=== PATIENT | male | born 1965 | race Caucasian/White ===

== ENCOUNTER 2019-07-21 06:21 | Inpatient (IN) | payer MEDICARE ==
[2019-07-21 08:45] LABS: ABSOLUTE BASOPHILS # (AUTO) 0.1 10^3/uL (0.0-0.2); ABSOLUTE EOSINOPHILS # (AUTO) 0.9 10^3/uL (0.0-0.6); ABSOLUTE MONOCYTES (AUTO) 1.4 10^3/uL (0.1-1.4); ABSOLUTE NEUT (AUTO) 7.4 10^3/uL (1.7-8.2); BASOPHILS % (AUTO) 0.6 % (0-2); HEMATOCRIT 39.2 % (37.9-51.0); HEMOGLOBIN 13.2 g/dL (13.5-17.0); LYMPHOCYTES % (AUTO) 9.3 % (13-45); MEAN CORPUSCULAR HEMOGLOBIN 25.4 pg (27.0-33.4); MEAN CORPUSCULAR HGB CONC 33.8 g/dL (32.0-36.0); MEAN CORPUSCULAR VOLUME 75 fl (80-97); MONOCYTES % (AUTO) 12.8 % (3-13); PLATELET COUNT 252 10^3/uL (150-450); RED BLOOD COUNT 5.22 10^6/uL (4.35-5.55); RED CELL DISTRIBUTION WIDTH 15.6 % (11.5-14.0); SEGMENTED NEUTROPHILS % (AUTO) 69.3 % (42-78); TOTAL CELLS COUNTED % (AUTO) 100 %; WHITE BLOOD COUNT 10.7 10^3/uL (4.0-10.5)
[2019-07-21 08:46] LABS: VENOUS BLOOD BASE EXCESS -1.4 mmol/L; VENOUS BLOOD HCO3 25.6 mmol/L (20-32); VENOUS BLOOD PCO2 52.2 mmHg (35-63); VENOUS BLOOD PH 7.31 (7.30-7.42)
[2019-07-21 08:54] LABS: INTERNATIONAL RATION (INR) 0.94; PROTHROMBIN TIME 12.6 SEC (11.4-15.4)
[2019-07-21 09:05] LABS: ALBUMIN 3.9 g/dL (3.5-5.0); ALKALINE PHOSPHATASE 126 U/L (38-126); ANION GAP 6 (5-19); ASPARTATE AMINO TRANSFERASE 52 U/L (17-59); BILIRUBIN,TOTAL 0.5 mg/dL (0.2-1.3); BLOOD UREA NITROGEN 18 mg/dL (7-20); CALCIUM 8.6 mg/dL (8.4-10.2); CARBON DIOXIDE 26 mmol/L (22-30); CHLORIDE 103 mmol/L (98-107); GLUCOSE 109 mg/dL (75-110); POTASSIUM 4.4 mmol/L (3.6-5.0); TOTAL PROTEIN 6.6 g/dL (6.3-8.2)
[2019-07-21] MEDS ORDERED: MORPHINE SULFATE 10 MG/ML INJ IV ONE ×2 (09:21→12:14)
--- NOTE | 2019-07-21 09:23 | ER Document Report ---
ED Skin Rash/Insect Bite/Abscs - General Chief Complaint: Facial Swelling Stated Complaint: FACIAL EDEMA Time Seen by Provider: 07/21/19 08:59 Mode of Arrival: Ambulatory Information source: Patient Notes: Patient presents complaint of facial swelling for the past 2 days. Patient states that he had a bump inside his nostril and that the area surrounding it seemed to get infected. Patient reports a fever 2 days ago. 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 Patient states he was seen at an urgent care and started on Keflex and Bactrim 2 days ago. Patient denies any improvement despite taking the antibiotics. - HPI Patient complains to provider of: Tender/swollen area Onset: Other - 2 days ago Onset/Duration: Worse Quality of pain: Sharp Pain Level: 5 Skin Character: Erythema, Tenderness, Warm Skin Temperature: Warm Quality of rash: Painful Relieved by: Denies Similar symptoms previously: Yes Recently seen / treated by doctor: Yes - Related Data Allergies/Adverse Reactions: No Known Allergies Allergy (Unverified 07/21/19 10:28) Home Medications: Bactrim. Breo Past Medical History - General Information source: Patient - Social History Smoking Status: Current Every Day Smoker Chew tobacco use (# tins/day): No Frequency of alcohol use: None Drug Abuse: None Occupation: None Family History: Reviewed & Not Pertinent Patient has homicidal ideation: No Pulmonary Medical History: Reports: Hx COPD Musculoskeletal Medical History: Reports Hx Arthritis - Chronic back pain Skin Medical History: Reports Hx MRSA Past Surgical History: Reports: Hx Orthopedic Surgery - back, knee replacement Review of Systems - Review of Systems Constitutional: No symptoms reported. denies: Fever EENT: Other - Tenderness, swelling to the nose and facial area Cardiovascular: No symptoms reported Respiratory: No symptoms reported. denies: Cough, Short of breath Gastrointestinal: No symptoms reported. denies: Vomiting Genitourinary: No symptoms reported Male Genitourinary: No symptoms reported Musculoskeletal: No symptoms reported Skin: Other - Erythema to left facial area, crusted skin lesion inside nostril Hematologic/Lymphatic: No symptoms reported Neurological/Psychological: No symptoms reported Physical Exam - Vital signs Vitals: Temp 98.2 F 07/21/19 07:52 - General General appearance: Appears well, Alert In distress: None - HEENT Head: Normocephalic, Atraumatic Eyes: Normal Conjunctiva: Normal Nasal: Other - Crusted skin lesion inside the left nostril, small pustular lesion outside of left nostril Mucous membranes: Normal Pharynx: Normal Notes: Left maxillary facial tenderness with faint erythema - Respiratory Respiratory status: No respiratory distress Chest status: Nontender Breath sounds: Normal. No: Rales, Rhonchi, Stridor, Wheezing Chest palpation: Normal - Cardiovascular Rhythm: Regular Heart sounds: S1 appreciated, S2 appreciated - Back Back: Normal - Extremities General upper extremity: Normal inspection, Normal strength General lower extremity: Normal inspection, Normal strength - Neurological Neuro grossly intact: Yes Cognition: Normal Simon Coma Scale Eye Opening: Spontaneous Simon Coma Scale Verbal: Oriented [place] Coma Scale Motor: Obeys Commands Simon Coma Scale Total: 15 - Psychological Associated symptoms: Normal affect, Normal mood - Skin Skin Temperature: Warm Skin Moisture: Dry Skin Color: Erythema - Faint erythema to left maxillary facial area Skin irregularity: other - Pustular lesion just inferior of left nostril, crusted area inside left nostril Course - Re-evaluation Re-evalutation: 07/21/19 11:[address] Sequeira regarding patient presentation and diagnostic evaluation. Recommends consultation with ENT Dr. Chowdhury, patch press operator placed call for consult, awaiting return call. 07/21/19 12:[address] Chowdhury and reviewed patient's presentation and diagnostic evaluation with him. Discussed findings on CT scan. Dr. Mcleod feels that patient requires admission by the hospitalist at this time for IV antibiotics such as when isolated and continuing his Bactrim, although states that antibiotic choice can be guided by the hospitalist at this time. Dr Chowdhury states that if the hospitalist needs to reimage the patient at some point and patient does have findings that require his services, ENT can be consulted at that point. 07/21/19 12:[address] Card who does agree to admit patient to a medical floor at this time. Dr. Card requests that an order for consultation for Dr. Chowdhury be placed. - Vital Signs Vital signs: Temp Pulse Resp BP Pulse Ox 99.4 F 82 18 140/69 H 99 07/21/19 15:55 07/21/19 15:55 07/21/19 15:55 07/21/19 15:55 05/20/20 15:55 - Laboratory Result Diagrams: 07/21/19 08:30 07/21/19 08:30 Laboratory results interpreted by me: 07/21/19 07/21/19 08:30 08:30 WBC 10.7 H Hgb 13.2 L MCV 75 L MCH 25.4 L RDW 15.6 H Lymph % (Auto) 9.3 L Eos % (Auto) 8.0 H Absolute Eos (auto) 0.9 H Sodium 135.0 L 07/21/19 12:13 Labs- Entire Visit 07/21/19 07/21/19 07/21/19 08:30 08:30 08:30 WBC 10.7 H RBC 5.22 Hgb 13.2 L Hct 39.2 MCV 75 L MCH 25.4 L MCHC 33.8 RDW 15.6 H Plt Count 252 Lymph % (Auto) 9.3 L [place] % (Auto) 12.8 Eos % (Auto) 8.0 H Baso % (Auto) 0.6 Absolute Neuts (auto) 7.4 Absolute Lymphs (auto) 1.0 Absolute Monos (auto) 1.4 Absolute Eos (auto) 0.9 H Absolute Basos (auto) 0.1 Seg Neutrophils % 69.3 PT 12.6 INR 0.94 VBG pH VBG pCO2 VBG HCO3 VBG Base Excess Sodium 135.0 L Potassium 4.4 Chloride 103 Carbon Dioxide 26 Anion Gap 6 BUN 18 Creatinine 0.73 Est GFR ( Amer) > 60 Est GFR (MDRD) Non-Af > 60 Glucose 109 Lactic Acid Calcium 8.6 Total Bilirubin 0.5 Direct Bilirubin 0.0 Neonat Total Bilirubin Not Reportable Neonat Direct Bilirubin Not Reportable Neonat Indirect Bili Not Reportable AST 52 ALT 48 Alkaline Phosphatase 126 Total Protein 6.6 Albumin 3.9 07/21/19 07/21/19 08:30 08:30 WBC RBC Hgb Hct MCV MCH MCHC RDW Plt Count Lymph % (Auto) [place] % (Auto) Eos % (Auto) Baso % (Auto) Absolute Neuts (auto) Absolute Lymphs (auto) Absolute Monos (auto) Absolute Eos (auto) Absolute Basos (auto) Seg Neutrophils % PT INR VBG pH 7.31 VBG pCO2 52.2 VBG HCO3 25.6 VBG Base Excess -1.4 Sodium Potassium Chloride Carbon Dioxide Anion Gap BUN Creatinine Est GFR ( Amer) Est GFR (MDRD) Non-Af Glucose Lactic Acid 0.9 Calcium Total Bilirubin Direct Bilirubin Neonat Total Bilirubin Neonat Direct Bilirubin Neonat Indirect Bili AST ALT Alkaline Phosphatase Total Protein Albumin - Diagnostic Test Radiology reviewed: Reports reviewed Discharge - Discharge Clinical Impression: Facial cellulitis Condition: Stable Disposition: ADMITTED OBSERVATION Admitting Provider: Kyaw (Hospitalist) Unit Admitted: Medical Floor
[2019-07-21] MEDS ORDERED: ONDANSETRON HCL INJ/PF 4 MG/2 ML SDV IV ONE (09:39)
--- NOTE | 2019-07-21 10:37 | RADIOLOGY REPORT (SQ) ---
EXAM DESCRIPTION: CT FACIAL AREA WITH IMAGES COMPLETED DATE/TIME: 07/21/2019 10:15 am REASON FOR STUDY: facial infection, swelling COMPARISON: None. TECHNIQUE: Post contrast images through the facial bones and orbits windowed for bone and soft tissu e. Additional coronal and sagittal reconstructed images reviewed. All images stored on PACS. All CT scanners at this facility use dose modulation, iterative reconstruction, and/or weight based d osing when appropriate to reduce radiation dose to as low as reasonably achievable (ALARA). [facility]: Dose Right [facility]: CareDose [facility]: Dose Right [facility]: Teradose 4D [facility]: [employer] CONTRAST TYPE AND DOSE: contrast/concentration: Isovue 350.00 mg/ml; Total Contrast Delivered: 75.0 ml; Total Saline Delivered: 55.0 ml RENAL FUNCTION: BUN 18, creatinine 0.73 RADIATION DOSE: CT Rad equipment meets quality standard of care and radiation dose reduction techniq ues were employed. CTDIvol: 30.4 mGy. DLP: 650 mGy-cm. . LIMITATIONS: None. FINDINGS: FACIAL BONES: No fracture or bone lesion. ORBITS: Intact. No fracture. Symmetric intact globes and retroorbital soft tissues. PARANASAL SINUSES: Mucosal thickening in the maxillary sinuses and ethmoid air cells. Occluded left o stiomeatal unit. SOFT TISSUES: There is subcutaneous edema involving the left aspect of the face. There is asymmetric edema overlying the left aspect of the maxilla. Subtle area of decreased attenuation midline on willy ge 37 of series 3. This could represent volume averaging with surrounding fat. Developing abscess c annot be excluded. This is well demonstrated on image 31 of series 200 as well. INFERIOR BRAIN: Limited view. No acute findings. OTHER: Scattered bilateral cervical nodes most likely reactive. IMPRESSION: Suspect left facial cellulitis. Asymmetric soft tissue attenuation involving the soft t issues anterior to the left maxillary sinus and maxilla as described. Developing abscess centrally o verlying the maxilla cannot be excluded. This measures approximately 1 x 1 cm in greatest diameter. This is best demonstrated on series 3 image 37. TECHNICAL DOCUMENTATION: JOB ID: [id number] Quality ID # [id number]: Final reports with documentation of one or more dose reduction techniques (e.g., Au tomated exposure control, adjustment of the mA and/or kV according to patient size, use of iterative reconstruction technique) 2010 [employer]- All Rights Reserved Reading location - IP/workstation name: [email or web address]
[2019-07-21] MEDS ORDERED: LINEZOLID 600 MG/300 ML RTUPB IV ONE (12:05)
[2019-07-21] MEDS ORDERED: ONDANSETRON HCL INJ/PF 4 MG/2 ML SDV IV PRN (12:55)
[2019-07-21] MEDS ORDERED: IPRATROPIUM/ALBUTEROL 0.5-2.5 MG/3 ML AMPUL NEB PRN (12:55)
[2019-07-21] MEDS ORDERED: ACETAMINOPHEN 325 MG TABLET PO PRN (12:55)
[2019-07-21] MEDS ORDERED: PIPERACILLIN/TAZOBACTAM 3.375 GM VIAL IV SCH (13:15)
[2019-07-21] MEDS ORDERED: NICOTINE 7 MG/24 HR PATCH.TD24 TD PRN (13:23)
--- NOTE | 2019-07-21 13:23 | PDOC H&P ---
History of Present Illness Admission Date/PCP: 07/21/19 12:32 Patient complains of: Left facial swelling and pain History of Present Illness: JENNIFER DUARTE III is a 53 year old male with a history of COPD, arthritis, who presents to the hospital with complaints of pain in his left facial region. Symptoms started a few days ago as pain in his left nostril associated with a slight bump there. He states that he squeezed the bump without expression of any fluid and then the next day the swelling in his left face worsened and now starting to progress towards his periorbital region. He saw his primary care provider who prescribed him Bactrim and Keflex as well as a topical medication which she has been taking for the past 2 days. However his symptoms especially the swelling in his face has worsened which prompted him to seek medical care at the hospital. He admits to a history of MRSA abscess to his lower extremities requiring drainage. Past Medical History Pulmonary Medical History: Reports: Chronic Obstructive Pulmonary Disease (COPD) Past Surgical History Past Surgical History: Reports: Orthopedic Surgery - back, knee replacement Social History Smoking Status: Current Every Day Smoker Electronic Cigarette use?: No Frequency of Alcohol Use: Rare Hx Recreational Drug Use: No - Advance Directive Resuscitation Status: Full Code Family History Family History: Hypertension Parental Family History Reviewed: Yes Children Family History Reviewed: Unknown Sibling(s) Family History Reviewed.: Unknown Medication/Allergy Allergies/Adverse Reactions: No Known Allergies Allergy (Unverified 07/21/19 10:28) Review of Systems Constitutional: PRESENT: chills, fever(s) - A few days ago Eyes: PRESENT: other - Denies ophthalmoplegia, chemosis or eye pain. ABSENT: visual disturbances Ears: ABSENT: hearing changes Nose, Mouth, and Throat: ABSENT: headache(s) Cardiovascular: ABSENT: chest pain Respiratory: ABSENT: cough, dyspnea, sputum Gastrointestinal: ABSENT: abdominal pain, nausea, vomiting Genitourinary: ABSENT: dysuria Neurological: ABSENT: dizziness Psychiatric: ABSENT: anxiety Endocrine: ABSENT: polyuria Allergic/Immunologic: PRESENT: seasonal rhinorrhea Physical Exam Vital Signs: Temp Pulse Resp BP Pulse Ox 98.2 F 75 20 142/85 H 100 07/21/19 08:00 07/21/19 08:00 07/21/19 08:00 07/21/19 08:00 07/21/19 08:00 Intake & Output 07/20/19 07/21/19 07/22/19 06:59 06:59 06:59 Weight 95.254 kg General appearance: PRESENT: no acute distress, cooperative Head exam: PRESENT: other - Left facial swelling involving upper and lower face and preseptal region with erythema. Mild erythema of the left nasal cavity. Eye exam: PRESENT: other - No chemosis. ABSENT: conjunctival injection, scleral icterus Mouth exam: PRESENT: neck supple Neck exam: ABSENT: meningismus, tenderness Respiratory exam: PRESENT: clear to auscultation francisco, unlabored Cardiovascular exam: PRESENT: RRR, +S1, +S2 GI/Abdominal exam: PRESENT: soft. ABSENT: tenderness Extremities exam: ABSENT: calf tenderness, pedal edema Neurological exam: PRESENT: alert, awake Psychiatric exam: ABSENT: agitated, anxious Focused psych exam: ABSENT: pressured speech Skin exam: ABSENT: jaundice Results Laboratory Results: 07/21/19 08:30 07/21/19 08:30 07/21/19 07/21/19 07/21/19 08:30 08:30 08:30 WBC 10.7 H RBC 5.22 Hgb 13.2 L Hct 39.2 MCV 75 L MCH 25.4 L MCHC 33.8 RDW 15.6 H Plt Count 252 Seg Neutrophils % 69.3 VBG pH 7.31 VBG pCO2 52.2 VBG HCO3 25.6 VBG Base Excess -1.4 Sodium 135.0 L Potassium 4.4 Chloride 103 Carbon Dioxide 26 Anion Gap 6 BUN 18 Creatinine 0.73 Est GFR ( Amer) > 60 Glucose 109 Lactic Acid Calcium 8.6 Total Bilirubin 0.5 AST 52 Alkaline Phosphatase 126 Total Protein 6.6 Albumin 3.9 07/21/19 08:30 WBC RBC Hgb Hct MCV MCH MCHC RDW Plt Count Seg Neutrophils % VBG pH VBG pCO2 VBG HCO3 VBG Base Excess Sodium Potassium Chloride Carbon Dioxide Anion Gap BUN Creatinine Est GFR ( Amer) Glucose Lactic Acid 0.9 Calcium Total Bilirubin AST Alkaline Phosphatase Total Protein Albumin Impressions: Facial Bones CT 07/21/19 09:20 IMPRESSION: Suspect left facial cellulitis. Asymmetric soft tissue attenuation involving the soft tissues anterior to the left maxillary sinus and maxilla as described. Developing abscess centrally overlying the maxilla cannot be excluded. This measures approximately 1 x 1 cm in greatest diameter. This is best demonstrated on series 3 image 37. Assessment and Plan - Diagnosis (1) Facial cellulitis Is this a current diagnosis for this admission?: Yes Plan: Facial cellulitis with preseptal extension. No evidence of orbital involvement. Failed outpatient therapy with worsening of symptoms after 48 hours of Bactrim and Keflex. CT showing soft tissue swelling with questionable developing abscess in the left maxillary sinus. Blood cultures obtained Start on vancomycin and Zosyn Received IV morphine. Tylenol and IV Toradol as needed pain Monitor leukocytosis via CBC (2) COPD (chronic obstructive pulmonary disease) Qualifiers: COPD type: unspecified COPD Qualified Code(s): J44.9 - Chronic obstructive pulmonary disease, unspecified Is this a current diagnosis for this admission?: Yes Plan: Not seen at acute exacerbation. LABA/L AMA/ICS. Duo nebs as needed. (3) Tobacco abuse Is this a current diagnosis for this admission?: Yes Plan: Nicotine patch will be provided. - Time Time Spent with patient: 25-34 minutes - Inpatient Certification Medical Necessity: Failure to Improve With Outpatient Therapy
[2019-07-21] MEDS: KETOROLAC TROMETHAMINE INJ/PF 30 MG/1 ML SDV IV PRN ×2 (13:35→21:35)
[2019-07-21] MEDS: VANCOMYCIN HCL 1,250 MG in DEXTROSE 5%-WATER 250 ML IV SCH ×2 (14:22→22:05)
[2019-07-21] MEDS: MORPHINE SULFATE 10 MG/ML INJ IV PRN (14:38)
[2019-07-21] MEDS: PIPERACILLIN SODIUM/TAZOBACTAM 3.375 GM in NORMAL SALINE 100 ML IV SCH ×2 (16:45→20:13)
[2019-07-21] MEDS ORDERED: VANCOMYCIN HCL INJ 1000 MG VIAL IV SCH (22:00)
[2019-07-22] MEDS: MORPHINE SULFATE 10 MG/ML INJ IV PRN ×3 (02:09→17:25)
[2019-07-22] MEDS: PIPERACILLIN SODIUM/TAZOBACTAM 3.375 GM in NORMAL SALINE 100 ML IV SCH ×4 (02:13→21:05)
[2019-07-22 05:35] LABS: ABSOLUTE BASOPHILS # (AUTO) 0.1 10^3/uL (0.0-0.2); ABSOLUTE EOSINOPHILS # (AUTO) 1.1 10^3/uL (0.0-0.6); ABSOLUTE LYMPHOCYTES (AUTO) 1.4 10^3/uL (0.5-4.7); ABSOLUTE MONOCYTES (AUTO) 1.1 10^3/uL (0.1-1.4); ABSOLUTE NEUT (AUTO) 4.8 10^3/uL (1.7-8.2); BASOPHILS % (AUTO) 0.7 % (0-2); EOSINOPHILS % (AUTO) 12.6 % (0-6); HEMATOCRIT 40.2 % (37.9-51.0); HEMOGLOBIN 13.5 g/dL (13.5-17.0); LYMPHOCYTES % (AUTO) 17.2 % (13-45); MEAN CORPUSCULAR HEMOGLOBIN 25.1 pg (27.0-33.4); MEAN CORPUSCULAR HGB CONC 33.6 g/dL (32.0-36.0); MEAN CORPUSCULAR VOLUME 75 fl (80-97); MONOCYTES % (AUTO) 12.5 % (3-13); PLATELET COUNT 310 10^3/uL (150-450); RED BLOOD COUNT 5.37 10^6/uL (4.35-5.55); RED CELL DISTRIBUTION WIDTH 15.6 % (11.5-14.0); TOTAL CELLS COUNTED % (AUTO) 100 %; WHITE BLOOD COUNT 8.4 10^3/uL (4.0-10.5)
[2019-07-22] MEDS: VANCOMYCIN HCL 1,250 MG in DEXTROSE 5%-WATER 250 ML IV SCH ×2 (05:39→13:32)
[2019-07-22] MEDS ORDERED: ONDANSETRON HCL INJ/PF 4 MG/2 ML SDV IV PRN (07:30)
[2019-07-22] MEDS: FLUTICASONE/UMECLIDIN/VILANTER 100-62.5-25 MCG/DOSE IH SCH (10:04)
[2019-07-22] MEDS: ENOXAPARIN SODIUM INJ 40 MG/0.4 ML DISP.SYRIN SUBCUT SCH (10:05)
[2019-07-22 14:20] LABS: VANCOMYCIN,TROUGH 10.7 ug/mL (5.0-20.0)
--- NOTE | 2019-07-22 18:12 | PDOC PROGRESS REPORT ---
Subjective Progress Note for:: 07/22/19 Subjective:: Patient states that he feels better overall. The pain in his left side of face is improved. Denies fever chills. Reason For Visit: FACIAL CELLULITIS Physical Exam Vital Signs: Temp Pulse Resp BP Pulse Ox 99.8 F 77 16 145/83 H 98 07/22/19 11:33 07/22/19 15:15 07/22/19 14:11 07/22/19 15:15 07/22/19 15:15 Intake & Output 07/21/19 07/22/19 07/23/19 06:59 06:59 06:59 Intake Total 1576 1300 Balance 1576 1300 Weight 90.7 kg General appearance: PRESENT: no acute distress, cooperative Head exam: PRESENT: other - Redness and swelling in the left face has improved significantly. Mild erythema still noted. Eye exam: PRESENT: other - No evidence of chemosis. ABSENT: periorbital swelling Neck exam: ABSENT: JVD Respiratory exam: PRESENT: unlabored Neurological exam: PRESENT: alert, awake Results Laboratory Results: 07/22/19 04:50 07/21/19 08:30 07/22/19 04:50 WBC 8.4 RBC 5.37 Hgb 13.5 Hct 40.2 MCV 75 L MCH 25.1 L MCHC 33.6 RDW 15.6 H Plt Count 310 Seg Neutrophils % 57.0 Impressions: Facial Bones CT 07/21/19 09:20 IMPRESSION: Suspect left facial cellulitis. Asymmetric soft tissue attenuation involving the soft tissues anterior to the left maxillary sinus and maxilla as described. Developing abscess centrally overlying the maxilla cannot be excluded. This measures approximately 1 x 1 cm in greatest diameter. This is best demonstrated on series 3 image 37. Assessment and Plan - Diagnosis (1) Facial cellulitis Is this a current diagnosis for this admission?: Yes Plan: Leukocytosis and tach resolved. Blood cultures negative at 24 hours. Continue vancomycin and Zosyn. Continue pain medications. (2) COPD (chronic obstructive pulmonary disease) Qualifiers: COPD type: unspecified COPD Qualified Code(s): J44.9 - Chronic obstructive pulmonary disease, unspecified Is this a current diagnosis for this admission?: Yes Plan: Not seen at acute exacerbation. LABA/L AMA/ICS. Duo nebs as needed. (3) Tobacco abuse Is this a current diagnosis for this admission?: Yes Plan: Nicotine patch provided. - Time Time Spent with patient: Less than 15 minutes
[2019-07-22] MEDS: VANCOMYCIN HCL 1,500 MG in DEXTROSE 5%-WATER 250 ML IV SCH (21:49)
[2019-07-23] MEDS: MORPHINE SULFATE 10 MG/ML INJ IV PRN ×2 (00:19→06:22)
[2019-07-23] MEDS: PIPERACILLIN SODIUM/TAZOBACTAM 3.375 GM in NORMAL SALINE 100 ML IV SCH ×2 (03:45→09:30)
[2019-07-23] MEDS: VANCOMYCIN HCL 1,500 MG in DEXTROSE 5%-WATER 250 ML IV SCH (05:25)
[2019-07-23] MEDS: KETOROLAC TROMETHAMINE INJ/PF 30 MG/1 ML SDV IV PRN (08:48)
[2019-07-23] MEDS: ENOXAPARIN SODIUM INJ 40 MG/0.4 ML DISP.SYRIN SUBCUT SCH (09:30)
[2019-07-23] MEDS: FLUTICASONE/UMECLIDIN/VILANTER 100-62.5-25 MCG/DOSE IH SCH (09:32)
[2019-07-23 11:32] VITALS: BP 140/69
--- NOTE | 2019-07-23 11:33 | PDOC DISCHARGE SUMMARY ---
Impression - Admit/DC Date/PCP Admission Date/Primary Care Provider: 07/21/19 12:32 Discharge Date: 07/23/19 - Discharge Diagnosis (1) Facial cellulitis Is this a current diagnosis for this admission?: Yes (2) COPD (chronic obstructive pulmonary disease) Is this a current diagnosis for this admission?: Yes (3) Tobacco abuse Is this a current diagnosis for this admission?: Yes - Additional Information Resuscitation Status: Full Code Discharge Diet: As Tolerated Prescriptions: Amoxicillin/Potassium Clav [Augmentin 875-125 Tablet] 1 tab PO Q12 9 Days #18 tablet Sulfamethoxazole/Trimethoprim [Bactrim Ds Tablet] 1 each PO Q12 8 Days tablet Home Medications: Albuterol Sulfate [Albuterol Sulfate Hfa] 2 puff IH Q6HP PRN 07/21/19 Cetirizine HCl [Zyrtec 10 mg Tablet] 10 mg PO DAILY 07/21/19 Diclofenac Sodium 75 mg PO BID 07/21/19 Fluticasone/Vilanterol [Breo Ellipta 200-25 Mcg INH] 1 inh IH DAILY 07/21/19 Multivit-Min/Folic/Vit K/Lycop [One-A-Day Men's 50 Plus Tablet] 1 each PO DAILY 07/21/19 Omeprazole 20 mg PO DAILY 07/21/19 Umeclidinium [place] [Incruse Ellipta] 1 inh IH DAILY 07/21/19 Amoxicillin/Potassium Clav [Augmentin 875-125 Tablet] 1 tab PO Q12 9 Days #18 tablet 07/23/19 Sulfamethoxazole/Trimethoprim [Bactrim Ds Tablet] 1 each PO Q12 8 Days tablet 07/23/19 History of Present Illiness History of Present Illness: JENNIFER DUARTE III is a 53 year old male with a history of COPD, arthritis, who presents to the hospital with complaints of pain in his left facial region. Symptoms started a few days ago as pain in his left nostril associated with a slight bump there. He states that he squeezed the bump without expression of any fluid and then the next day the swelling in his left face worsened and now starting to progress towards his periorbital region. He saw his primary care provider who prescribed him Bactrim and Keflex as well as a topical medication which she has been taking for the past 2 days. However his symptoms especially the swelling in his face has worsened which prompted him to seek medical care at the hospital. He admits to a history of MRSA abscess to his lower extremities requiring drainage. Hospital Course Hospital Course: Patient was admitted for treatment of left facial cellulitis with preseptal cellulitis/involvement. Patient underwent facial CT which showed questionable developing abscess but upon evaluation by ENT who discussed case with ER provider, there was no drainable abscess noted and her ENT had only recommended treatment with antibiotics and would only need further intervention if no improvement. Patient symptoms significantly improved after being started on IV vancomycin and Zosyn. Blood cultures were negative at 48-hour mirna. Patient swelling went down substantially and patient is ready and stable for discharge today. Patient still has prescriptions for he has Bactrim at home and has 8 days worth which have instructed him to finish up and have also added 9 days of Augmentin. Physical Exam Vital Signs: Temp Pulse Resp BP Pulse Ox 99.0 F 101 H 16 140/82 H 93 07/23/19 08:25 07/23/19 09:10 07/23/19 09:10 07/23/19 08:25 07/23/19 09:10 Intake & Output 07/22/19 07/23/19 07/24/19 06:59 06:59 06:59 Intake Total 1576 2360 Balance 1576 2360 Weight 90.7 kg 90.7 kg General appearance: PRESENT: no acute distress, cooperative Head exam: PRESENT: other - Facial swelling improved significantly down to the bare minimum. Results Laboratory Results: WBC 8.4 10^3/uL (4.0-10.5) 07/22/19 04:50 RBC 5.37 10^6/uL (4.35-5.55) 07/22/19 04:50 Hgb 13.5 g/dL (13.5-17.0) 07/22/19 04:50 Hct 40.2 % (37.9-51.0) 07/22/19 04:50 MCV 75 fl (80-97) L 07/22/19 04:50 MCH 25.1 pg (27.0-33.4) L 07/22/19 04:50 MCHC 33.6 g/dL (32.0-36.0) 07/22/19 04:50 RDW 15.6 % (11.5-14.0) H 07/22/19 04:50 Plt Count 310 10^3/uL (150-450) 07/22/19 04:50 Lymph % (Auto) 17.2 % (13-45) 07/22/19 04:50 [place] % (Auto) 12.5 % (3-13) 07/22/19 04:50 Eos % (Auto) 12.6 % (0-6) H 07/22/19 04:50 Baso % (Auto) 0.7 % (0-2) 07/22/19 04:50 Absolute Neuts (auto) 4.8 10^3/uL (1.7-8.2) 07/22/19 04:50 Absolute Lymphs (auto) 1.4 10^3/uL (0.5-4.7) 07/22/19 04:50 Absolute Monos (auto) 1.1 10^3/uL (0.1-1.4) 07/22/19 04:50 Absolute Eos (auto) 1.1 10^3/uL (0.0-0.6) H 07/22/19 04:50 Absolute Basos (auto) 0.1 10^3/uL (0.0-0.2) 07/22/19 04:50 Seg Neutrophils % 57.0 % (42-78) 07/22/19 04:50 PT 12.6 SEC (11.4-15.4) 07/21/19 08:30 INR 0.94 07/21/19 08:30 VBG pH 7.31 (7.30-7.42) 07/21/19 08:30 VBG pCO2 52.2 mmHg (35-63) 07/21/19 08:30 VBG HCO3 25.6 mmol/L (20-32) 07/21/19 08:30 VBG Base Excess -1.4 mmol/L 07/21/19 08:30 Sodium 135.0 mmol/L (137-145) L 07/21/19 08:30 Potassium 4.4 mmol/L (3.6-5.0) 07/21/19 08:30 Chloride 103 mmol/L (98-107) 07/21/19 08:30 Carbon Dioxide 26 mmol/L (22-30) 07/21/19 08:30 Anion Gap 6 (5-19) 07/21/19 08:30 BUN 18 mg/dL (7-20) 07/21/19 08:30 Creatinine 0.73 mg/dL (0.52-1.25) 07/21/19 08:30 Est GFR ( Amer) > 60 (>60) 07/21/19 08:30 Est GFR (MDRD) Non-Af > 60 (>60) 07/21/19 08:30 Glucose 109 mg/dL (75-110) 07/21/19 08:30 Lactic Acid 0.9 mmol/L (0.7-2.1) 07/21/19 08:30 Calcium 8.6 mg/dL (8.4-10.2) 07/21/19 08:30 Total Bilirubin 0.5 mg/dL (0.2-1.3) 07/21/19 08:30 Direct Bilirubin 0.0 mg/dL (0.0-0.4) 07/21/19 08:30 Neonat Total Bilirubin Not Reportable 07/21/19 08:30 Neonat Direct Bilirubin Not Reportable 07/21/19 08:30 Neonat Indirect Bili Not Reportable 07/21/19 08:30 AST 52 U/L (17-59) 07/21/19 08:30 ALT 48 U/L (<50) 07/21/19 08:30 Alkaline Phosphatase 126 U/L (38-126) 07/21/19 08:30 Total Protein 6.6 g/dL (6.3-8.2) 07/21/19 08:30 Albumin 3.9 g/dL (3.5-5.0) 07/21/19 08:30 Time Trough Drawn 1325 07/22/19 13:25 Vancomycin Trough 10.7 ug/mL (5.0-20.0) 07/22/19 13:25 COVID-19 Source Cancelled 07/21/19 13:15 COVID-19 (PAU) Cancelled 07/21/19 13:15 SARS-CoV-2 (PCR) NEGATIVE (NEGATIVE) 07/21/19 13:15 Impressions: Facial Bones CT 07/21/19 09:20 IMPRESSION: Suspect left facial cellulitis. Asymmetric soft tissue attenuation involving the soft tissues anterior to the left maxillary sinus and maxilla as described. Developing abscess centrally overlying the maxilla cannot be excluded. This measures approximately 1 x 1 cm in greatest diameter. This is b est demonstrated on series 3 image 37. Plan Time Spent: Less than 30 Minutes Stroke Is this a Stroke Patient?: No Acute Heart Failure - Is this a Heart Failure Patient?: No
== END 2019-07-23 12:05 | disposition home or self-care (01) | DRG 603 ==
LOC: ER 06:21 → EH 12:32 → OBSVTOIN 12:32 → 4N 15:50
PROVIDERS: ADMIT Internal Medicine; ATTEND Internal Medicine
DX: L03.211 Cellulitis of face (principal); L03.213 Periorbital cellulitis; Z03.818 Encounter for observation for suspected exposure to other biological agents ruled out; J44.9 Chronic obstructive pulmonary disease, unspecified; F17.210 Nicotine dependence, cigarettes, uncomplicated; Z96.659 Presence of unspecified artificial knee joint; Z79.899 Other long term (current) drug therapy; Z86.14 Personal history of Methicillin resistant Staphylococcus aureus infection
CPT/HCPCS: 36415; 70487; 80053; 80202; 82803; 83605; 85025; 85610; 87040; 87635; 96365; 96375; 99284; J1885; J2020; J2270; J2405; J2543; J3370; J3490; J7050; J7060

== ENCOUNTER 2019-09-10 19:43 | Emergency (ER) | payer MEDICARE ==
--- NOTE | 2019-09-10 20:10 | ER Document Report ---
ED General - General Chief Complaint: Shortness Of Breath Stated Complaint: SHORTNESS OF BREATH Time Seen by Provider: 09/10/19 20:06 Mode of Arrival: Medic Information source: Patient, Emergency Med Personnel Notes: Patient is a 53-year-old male presenting to the emergency department chief co mplaint of severe shortness of breath. Patient states that it began yesterday and progressively has worsened. Patient denies travel history trauma history sick contacts no obvious changes in medication or activities of daily living. Patient does continue to smoke however. Patient denies fevers chills nausea vomiting or diarrhea. TRAVEL OUTSIDE OF THE [place] IN LAST 30 DAYS: No - HPI Onset: Yesterday Onset/Duration: Gradual, Worse Quality of pain: No pain Severity: None Pain Level: 0 Associated symptoms: Nonproductive cough, Shortness of breath. denies: Diarrhea, Leg swelling, Nausea, Vomiting Exacerbated by: Movement, Coughing, Deep breathing Relieved by: Denies Similar symptoms previously: Yes Recently seen / treated by doctor: No - Related Data Allergies/Adverse Reactions: No Known Allergies Allergy (Unverified 07/21/19 10:28) Home Medications: Duoneb Past Medical History - General Information source: Patient, Emergency Med Personnel - Social History Smoking Status: Current Every Day Smoker Cigarette use (# per day): Yes Chew tobacco use (# tins/day): No Smoking Education Provided: Yes Frequency of alcohol use: None Drug Abuse: None Lives with: Family Family History: Reviewed & Not Pertinent Patient has suicidal ideation: No Patient has homicidal ideation: No Pulmonary Medical History: Reports: Hx COPD Musculoskeletal Medical History: Reports Hx Arthritis - Chronic back pain Skin Medical History: Reports Hx MRSA Psychiatric Medical History: Denies: Hx Depression Past Surgical History: Reports: Hx Orthopedic Surgery - back, knee replacement Review of Systems - Review of Systems Constitutional: No symptoms reported EENT: No symptoms reported Cardiovascular: No symptoms reported Respiratory: See HPI Gastrointestinal: No symptoms reported Genitourinary: No symptoms reported Male Genitourinary: No symptoms reported Musculoskeletal: No symptoms reported Skin: No symptoms reported Hematologic/Lymphatic: No symptoms reported Neurological/Psychological: No symptoms reported Physical Exam - Vital signs Vitals: Temp 98.5 F 09/10/19 19:43 - Notes Notes: PHYSICAL EXAMINATION: GENERAL: Patient is a 53-year-old male presenting with increased work of breathing and respiratory distress HEAD: Atraumatic, normocephalic. EYES: Pupils equal round and reactive to light, extraocular movements intact, sclera anicteric, conjunctiva are normal. ENT: nares patent, oropharynx clear without exudates. Moist mucous membranes. NECK: Normal range of motion, supple without lymphadenopathy, no appreciable JVD LUNGS: Lungs demonstrate wheezes and rhonchi in all rapp there is decreased air movement to the lower lungs bilaterally, patient is using accessory muscles. HEART: Regular rate and rhythm without murmurs ABDOMEN: Soft, nontender, normal bowel sounds. No guarding, no rebound. No masses appreciated. EXTREMITIES: Active full range of motion, no pitting or edema. No cyanosis. 2+ pulses x4 NEUROLOGICAL: No focal neurological deficits. Moves all extremities spontaneously and on command. SKIN: Warm, Dry, and intact. Normal turgor, no rashes or lesions noted. Course - Re-evaluation Re-evalutation: 09/10/19 21:31 Patient has been reevaluated several times while in emergency department on most recent reevaluation the patient is looking much better. Patient states he feels well enough to go home and I feel at this point in time after reviewing EKG chest x-ray and laboratory studies that this is a viable option. Patient will receive a prescription for a Medrol Dosepak recommended to return to the emergency department for worsening symptoms otherwise follow-up with his primary care provider. I also highly advised the patient to stop smoking. - Vital Signs Vital signs: Temp Pulse Resp BP Pulse Ox 98.5 F 23 H 157/104 H 98 09/10/19 20:01 09/10/19 20:01 09/10/19 20:00 09/10/19 20:01 - Laboratory Result Diagrams: 09/10/19 19:52 09/10/19 19:52 Laboratory results interpreted by me: 09/10/19 09/10/19 19:52 19:52 RBC 5.94 H MCV 76 L MCH 25.3 L RDW 15.9 H Eos % (Auto) 16.1 H Absolute Eos (auto) 1.5 H Glucose 138 H Magnesium 3.3 H - Diagnostic Test Radiology reviewed: Reports reviewed - EKG Interpretation by Me EKG shows normal: Sinus rhythm Rate: Tachycardia Rhythm: NSR Discharge - Discharge Clinical Impression: COPD exacerbation Condition: Stable Disposition: HOME, SELF-CARE Additional Instructions: SHORTNESS OF BREATH OR DYSPNEA: You were evaluated for shortness of breath, or dyspnea. Dyspnea has many causes, and some are more serious than others. Sometimes it's impossible to diagnose the cause of dyspnea with the tests that are available on an emergency basis. Based on our evaluation today, you do not need hospitalization now. We found no evidence of pneumonia, collapsed lung, blood clots in the lung, tumors, or heart failure. Causes of non-specific dyspnea can include asthma or bronchospasm, hyperventilation, emotional distress, heart disease, emphysema, fibrosis of the lung, and stiffness of the chest wall. In healthy individuals with a single episode, it's sometimes reasonable to do nothing but wait to see if the problem occurs again. Additional tests used to evaluate dyspnea can include cardiac stress testing, echocardiography, pulmonary function testing, CAT scan of the chest, bronchoscopy or pulmonary biopsy. Return if shortness of breath persists or worsens, or if you develop chest pain, fever, cough, confusion, or fainting. NORMAL EXAM AND WORKUP: At this time, your examination and workup show no significant abnormality. No significant abnormal physical findings were noted. All laboratory, EKG, and imaging (x-ray, CT scans, ultrasound) studies that were ordered show no significant abnormality. Although your examination and all studies that were ordered showed no significant abnormal finding, there are no examinations and no studies that are 100% accurate. There is always the possibility that some abnormality could exist and not be detected with physical examination or within the limits and capabilities of laboratory and other studies. You should return or follow up as you were instructed on your visit today for further evaluation if your symptoms do not resolve. FOLLOW-UP CARE: If you have been referred to a physician for follow-up care, call the physicians office for an appointment as you were instructed or within the next two days. If you experience worsening or a significant change in your symptoms, notify the physician immediately or return to the Emergency Department at any time for re-evaluation. Prescriptions: Methylprednisolone [Medrol Dosepack (4 mg/Tab) 21 Tab/Dosepak] 4 mg PO ASDIR PRN #21 [email or web address] PRN Reason:
[2019-09-10 20:11] LABS: VENOUS BLOOD BASE EXCESS -2.6 mmol/L; VENOUS BLOOD HCO3 23.5 mmol/L (20-32); VENOUS BLOOD PCO2 45.4 mmHg (35-63); VENOUS BLOOD PH 7.33 (7.30-7.42)
[2019-09-10 20:13] LABS: ABSOLUTE BASOPHILS # (AUTO) 0.1 10^3/uL (0.0-0.2); ABSOLUTE EOSINOPHILS # (AUTO) 1.5 10^3/uL (0.0-0.6); ABSOLUTE LYMPHOCYTES (AUTO) 2.2 10^3/uL (0.5-4.7); ABSOLUTE MONOCYTES (AUTO) 1.1 10^3/uL (0.1-1.4); ABSOLUTE NEUT (AUTO) 4.4 10^3/uL (1.7-8.2); BASOPHILS % (AUTO) 0.6 % (0-2); EOSINOPHILS % (AUTO) 16.1 % (0-6); HEMATOCRIT 45.1 % (37.9-51.0); LYMPHOCYTES % (AUTO) 23.5 % (13-45); MEAN CORPUSCULAR HEMOGLOBIN 25.3 pg (27.0-33.4); MEAN CORPUSCULAR HGB CONC 33.3 g/dL (32.0-36.0); MEAN CORPUSCULAR VOLUME 76 fl (80-97); MONOCYTES % (AUTO) 11.7 % (3-13); PLATELET COUNT 313 10^3/uL (150-450); RED BLOOD COUNT 5.94 10^6/uL (4.35-5.55); RED CELL DISTRIBUTION WIDTH 15.9 % (11.5-14.0); SEGMENTED NEUTROPHILS % (AUTO) 48.1 % (42-78); TOTAL CELLS COUNTED % (AUTO) 100 %; WHITE BLOOD COUNT 9.2 10^3/uL (4.0-10.5)
[2019-09-10 20:26] LABS: ALBUMIN 4.6 g/dL (3.5-5.0); ALKALINE PHOSPHATASE 92 U/L (38-126); ANION GAP 9 (5-19); ASPARTATE AMINO TRANSFERASE 23 U/L (17-59); BILIRUBIN,TOTAL 0.6 mg/dL (0.2-1.3); BLOOD UREA NITROGEN 17 mg/dL (7-20); CARBON DIOXIDE 25 mmol/L (22-30); CHLORIDE 104 mmol/L (98-107); CREATINE KINASE 71 U/L (55-170); GLUCOSE 138 mg/dL (75-110); POTASSIUM 4.3 mmol/L (3.6-5.0); TOTAL PROTEIN 7.4 g/dL (6.3-8.2)
--- NOTE | 2019-09-10 20:33 | RADIOLOGY REPORT (SQ) ---
EXAM DESCRIPTION: CLINICAL HISTORY: 53 years Male shortness of breath COMPARISON: None TECHNIQUE: Upright portable chest x-ray FINDINGS: Cardiomediastinal silhouette is not enlarged. Obvious hyperinflation suggestive of asthma or emphysema. No acute lung pleural bone abnormalities. IMPRESSION: Hyperinflation suggestive of asthma or emphysema. No acute findings.
[2019-09-10 22:11] VITALS: BP 159/97
--- NOTE | 2019-09-10 23:14 | EKG REPORT ---
SEVERITY:- ABNORMAL ECG - SINUS TACHYCARDIA BIATRIAL ABNORMALITIES LEFT POSTERIOR FASCICULAR BLOCK : Confirmed by: Armani Lindsay MD 10-Sep-2019 23:13:03
== END 2019-09-10 22:22 | disposition home or self-care (01) ==
LOC: ER 19:43
DX: J44.1 Chronic obstructive pulmonary disease with (acute) exacerbation (principal); R00.0 Tachycardia, unspecified; R06.02 Shortness of breath; R05 Cough; F17.210 Nicotine dependence, cigarettes, uncomplicated; Z79.899 Other long term (current) drug therapy
CPT/HCPCS: 36415; 71045; 80053; 82550; 82803; 83605; 83735; 84484; 85025; 87040; 93005; 93010; 99285

== ENCOUNTER → 2019-09-14 | Outpatient (CLI) | payer MEDICARE ==
[2019-09-14 16:22] LABS: ABSOLUTE BASOPHILS # (AUTO) 0.1 10^3/uL (0.0-0.2); ABSOLUTE EOSINOPHILS # (AUTO) 1.1 10^3/uL (0.0-0.6); ABSOLUTE LYMPHOCYTES (AUTO) 2.4 10^3/uL (0.5-4.7); ABSOLUTE NEUT (AUTO) 6.3 10^3/uL (1.7-8.2); BASOPHILS % (AUTO) 0.9 % (0-2); EOSINOPHILS % (AUTO) 9.9 % (0-6); HEMATOCRIT 43.1 % (37.9-51.0); HEMOGLOBIN 14.8 g/dL (13.5-17.0); LYMPHOCYTES % (AUTO) 21.8 % (13-45); MEAN CORPUSCULAR HEMOGLOBIN 25.8 pg (27.0-33.4); MEAN CORPUSCULAR HGB CONC 34.3 g/dL (32.0-36.0); MEAN CORPUSCULAR VOLUME 75 fl (80-97); PLATELET COUNT 333 10^3/uL (150-450); RED BLOOD COUNT 5.73 10^6/uL (4.35-5.55); RED CELL DISTRIBUTION WIDTH 15.8 % (11.5-14.0); SEGMENTED NEUTROPHILS % (AUTO) 58.4 % (42-78); TOTAL CELLS COUNTED % (AUTO) 100 %; WHITE BLOOD COUNT 10.8 10^3/uL (4.0-10.5)
== END ==
LOC: OD 15:44
PROVIDERS: ATTEND Registered Nurse
DX: J30.89 Other allergic rhinitis (principal)
CPT/HCPCS: 36415; 82785; 85025; 86003

== ENCOUNTER 2020-01-10 10:37 | Emergency (ER) | payer MEDICARE ==
--- NOTE | 2020-01-10 11:34 | ER Document Report ---
HPI - HPI Time Seen by Provider: 01/10/20 11:28 Notes: 54-year-old male presenting to the emergency department chief complaint of right hand injury. Patient reports he was off of a ladder yesterday when he kind of tripped and slammed his hand into a wall. - ROS Systems Reviewed and Negative: Yes All other systems reviewed and negative - MUSCULOSKELETAL Musculoskeletal: REPORTS: Extremity pain Past Medical History - General Information source: Patient - Social History Smoking Status: Unknown if Ever Smoked Family History: Reviewed & Not Pertinent Pulmonary Medical History: Reports: Hx COPD Musculoskeletal Medical History: Reports Hx Arthritis - Chronic back pain Skin Medical History: Reports Hx MRSA Psychiatric Medical History: Denies: Hx Depression Past Surgical History: Reports: Hx Orthopedic Surgery - back, knee replacement Vertical Provider Document - CONSTITUTIONAL Notes: PHYSICAL EXAMINATION: GENERAL: Well-appearing, well-nourished and in no acute distress. HEAD: Atraumatic, normocephalic. EYES: Pupils equal round extraocular movements intact, conjunctiva are normal. ENT: Nares patent NECK: Normal range of motion LUNGS: No respiratory distress Musculoskeletal: Slightly limited range of motion to right hand, swelling and erythema noted over the dorsal surface. No warmth. Strong radial pulse, cap refill less than 3 seconds, normal sensation distally. NEUROLOGICAL: Normal speech, normal gait. PSYCH: Normal mood, normal affect. SKIN: Abrasions noted over the dorsal surface of the right wrist extending into forearm. - INFECTION CONTROL TRAVEL OUTSIDE OF THE [place] IN LAST 30 DAYS: No Course - Re-evaluation Re-evalutation: X-rays are negative for any acute fracture dislocation. Soft tissue swelling noted. Patient denies any IV drug use despite abrasions that actually appear to look more consistent with a venipunctures, see exam notes. I did have attending physician come to the room to evaluate the patient with me. We do feel this is likely a contusion. Given that patient is denying IV drug use but does have some questionable abrasions extending from the area we will start him on antibiotics as a precaution. He will be splinted and will follow up with orthopedics. Patient verbalizes understanding and agreement with this plan. Very strict ED return precautions were discussed with patient, patient verbalizes understanding and agreement with this. - Vital Signs Vital signs: Temp Pulse Resp BP Pulse Ox 98.4 F 80 20 113/95 H 99 01/10/20 10:58 11/09/20 10:58 01/10/20 10:58 01/10/20 10:58 01/10/20 10:58 Procedures - Immobilization Right hand Pre-Proc Neuro Vasc Exam: Normal Immobilizer type: Volar splint, Sling Performed by: PCT Post-Proc Neuro Vasc Exam: Normal Discharge - Discharge Clinical Impression: Contusion of right hand Qualifiers: Encounter type: initial encounter Qualified Code(s): S60.221A - Contusion of right hand, initial encounter Condition: Stable Disposition: HOME, SELF-CARE Additional Instructions: Contusion Your injury has resulted in a contusion -- a crushing of the deep tissues. No injury to important structures was detected during the physician's exam. Contusions vary in the amount of pain they cause, and in the length of time required for healing. Typically, the area will become bruised, and will remain painful to touch for two or three weeks. However, most patients are back to working and playing within a few days. After the initial period of rest and cold-packs, your symptoms (together with the doctor's recommendations) will determine how rapidly you can get back to full activity. Usually this means "do what feels okay, but don't do things that hurt." If re-examination was recommended, it's important to follow up as instructed. Call the doctor or return any time if pain increases, if swelling becomes severe, if you develop numbness or weakness in an injured extremity, or if any other alarming symptoms occur. Ice & Elevation Apply ice packs frequently against the painful area. Many different schedules are recommended, such as "20 minutes on, 20 minutes off" or "one hour ice, two hours rest." If you need to work, you may need to go longer between ice treatments. You should plan to have the area ice packed AT LEAST one-fourth of the time. The ice should be applied over the wrap, tape, or splint, or over a layer of cloth -- not directly against the skin. Some ice bags have a built-in cloth and can be put directly on the skin. Your injured part should be elevated as much as possible over the next 48 hours. Try to keep the injury above the level of the heart. Avoid use of the injured area. Elevation and rest will decrease the swelling. Ibuprofen Ibuprofen is an excellent, safe drug for pain control. In addition, it has potent antiinflammatory effects which are beneficial, especially in the treatment of injuries, arthritis, or tendonitis. It's best to take ibuprofen with food. Persons with ulcer disease or allergy to aspirin should notify their physician of this before taking ibuprofen. Take the medication exactly as prescribed. Don't take additional doses unless instructed to do so by your doctor. If you develop wheezing, shortness of breath, hives, faintness, stomach pain, vomiting, or dark black stools, return for re-evaluation at once. The x-rays were negative for any fracture or dislocation. Please take ibuprofen [id number] as directed to help with pain and inflammation. Use the splint to help with comfort and protection. Keep an eye on the area, return if the swelling, pain or redness increases. Try to keep the hand elevated above the level of your heart. We are sending in an antibiotic prescription as a precaution. Prescriptions: Cephalexin [Keflex] 500 mg PO BID #14 capsule Referrals: DAMION LANZA FNP-C [ALLIED HEALTH PROFESSIONAL] - Follow up as needed
[2020-01-10] MEDS ORDERED: HYDROCODONE/ACETAMINOPHEN 5-325 MG TABLET PO ONE (11:36)
--- NOTE | 2020-01-10 12:14 | RADIOLOGY REPORT (SQ) ---
EXAM DESCRIPTION: HAND RIGHT 3 VIEWS IMAGES COMPLETED DATE/TIME: 01/10/2020 11:52 am REASON FOR STUDY: R hand pain COMPARISON: None. EXAM PARAMETERS: NUMBER OF VIEWS: Three views. TECHNIQUE: AP, lateral and oblique radiographic images acquired of the right hand. LIMITATIONS: None. FINDINGS: MINERALIZATION: Normal. BONES: No acute fracture or dislocation. No worrisome bone lesions. JOINTS: Mild to moderate narrowing at the radiocarpal joint with subchondral cystic changes and subc hondral sclerosis. Mildly prominent pronator fat pad suggest effusion. SOFT TISSUES: Soft tissue swelling. No foreign body. OTHER: No other significant finding. IMPRESSION: 1. No acute osseous findings. Soft tissue swelling. 2. Degenerative changes at the wrist. 3. Mildly prominent pronator fat pad suggest effusion. TECHNICAL DOCUMENTATION: JOB ID: [id number] [employer]- All Rights Reserved Reading location - IP/workstation name: [email or web address]
[2020-01-10 14:47] VITALS: BP 118/88
== END 2020-01-10 14:46 | disposition home or self-care (01) ==
LOC: ER 10:37
PROC: 2W3CX1Z Immobilization of Right Lower Arm using Splint (ICD-10-PCS; principal; 2020-01-10)
DX: S60.221A Contusion of right hand, initial encounter (principal); W01.198A Fall on same level from slipping, tripping and stumbling with subsequent striking against other object, initial encounter
CPT/HCPCS: 99283; 73130; 29125; A9270

== ENCOUNTER 2020-01-11 01:41 | Emergency (ER) | payer MEDICARE | END 2020-01-11 02:28 | disposition left against medical advice (07) | LOC: ER 01:41 | DX: Z53.21 Procedure and treatment not carried out due to patient leaving prior to being seen by health care provider (principal); S69.90XA Unspecified injury of unspecified wrist, hand and finger(s), initial encounter; X58.XXXA Exposure to other specified factors, initial encounter ==